=== PATIENT | female | born 1970 | race Caucasian/White ===

== ENCOUNTER 2021-11-10 19:55 | Emergency (ER) | payer MEDICARE ==
[~2021-11-10] VITALS: Ht 177.8 cm; Wt 90.8 kg
[2021-11-10] MEDS ORDERED: VENTOLIN HFA18 GM INH (20:10)
== END 2021-11-10 21:14 | disposition home or self-care (01) ==
LOC: ED 19:55
DX: J45.901 Unspecified asthma with (acute) exacerbation (principal)
CPT/HCPCS: 94640; 94664; 99284